=== PATIENT | male | born 1990 | race Caucasian/White ===

== ENCOUNTER 2024-03-11 20:08 | Emergency (ER) | payer OTHER ==
[~2024-03-11] VITALS: Ht 172.7 cm; Wt 76.2 kg
[2024-03-11 20:14] VITALS: BP 114/78; PULSE 118; RESP 18; TEMP 103.2; O2SAT 98
[2024-03-11] MEDS ORDERED: ACETAMINOPHEN 325 MG TAB ONE (20:24)
[2024-03-11] MEDS: ACETAMINOPHEN 325 MG TAB PO ONE (20:25)
[2024-03-11 20:49] LABS: FLU A ANTIGEN negative (NEGATIVE); FLU B ANTIGEN NEGATIVE (NEGATIVE)
[2024-03-11] MEDS: NACL 0.9% 1,000 ML IV ONE (22:57)
[2024-03-11 23:02] LABS: BASOPHILS # (AUTO) 0.1 K/uL (0.00-0.22); BASOPHILS % (AUTO) 0.6 % (0.0-2.0); EOSINOPHILS % (AUTO) 0.3 % (0.0-4.0); HEMATOCRIT 45.9 % (36-52); HEMOGLOBIN 15.7 g/dL (12.0-18.0); LYMPHOCYTES # (AUTO) 2.4 K/uL (2.0-11.5); LYMPHOCYTES % (AUTO) 25.2 % (20.5-51.1); MEAN CORPUSCULAR HEMOGLOBIN 31 pg (27-31); MEAN CORPUSCULAR HGB CONC 34 g/dL (33-37); MEAN CORPUSCULAR VOLUME 89.2 fL (80-94); MONOCYTES # (AUTO) 0.8 K/uL (0.8-1.0); MONOCYTES % (AUTO) 8.4 % (1.7-9.3); NEUTROPHILS # (AUTO) 6.2 K/uL (1.8-7.7); NEUTROPHILS % (AUTO) 65.5 % (42.2-75.2); PLATELET COUNT (AUTO) 225 K/uL (140-450); RED BLOOD CELL COUNT(AUTO) 5.15 MIL/uL (4.20-6.10); RED CELL DISTRIBUTION WIDTH 13.3 % (11.6-13.7); WHITE BLOOD COUNT (AUTO) 9.4 K/uL (4.8-10.8)
[2024-03-11] MEDS ORDERED: KETOROLAC 30 MG/ML VIAL ONE (23:05)
[2024-03-11 23:07] LABS: APPEARANCE,URINE CLEAR (CLEAR); BILIRUBIN,URINE NEGATIVE (NEGATIVE); BLOOD, URINE NEGATIVE (NEGATIVE); COLOR,URINE YELLOW (YELLOW); LEUKOCYTE ESTERASE ,URINE NEGATIVE (NEGATIVE); NITRITE, URINE NEGATIVE (NEGATIVE); PROTEIN,URINE NEGATIVE (NEGATIVE); UGLUCOSE NEGATIVE (NEGATIVE); UROBILINOGEN,URINE 0.2 EU/dL (0.2 - 1)
[2024-03-11] MEDS: KETOROLAC 30 MG/ML VIAL IVP ONE (23:14)
[2024-03-11 23:17] LABS: INR 1.14 (0.8-1.2); PARTIAL THROMBOPLASTIN TIME 28.5 secs (22-35.6); PROTHROMBIN TIME 11.9 secs (10.8-13.4)
[2024-03-11 23:23] LABS: ALANINE AMINOTRANSFERASE 30 U/L (12-78); ALBUMIN 3.7 g/dL (3.4-5.0); ALKALINE PHOSPHATASE 67 U/L (50-136); ASPARTATE AMINOTRANSFERASE 28 U/L (15-37); BILIRUBIN,DIRECT 0.1 mg/dL (0.0-0.3); CREATINE KINASE, TOTAL 83 U/L (39-308); TOTAL BILIRUBIN 0.3 mg/dL (0.0-1.0); TOTAL PROTEIN, SERUM 8.7 g/dL (6.4-8.2)
[2024-03-11 23:25] LABS: ANION GAP 13.9 (8-16); CARBON DIOXIDE 27.2 mmol/L (21-32); CREATININE 1.1 mg/dL (0.6-1.3); POTASSIUM 4.1 mmol/L (3.5-5.1)
[2024-03-11 23:29] LABS: LACTIC ACID 1.9 mmol/L (0.4-2.0)
[2024-03-12] MEDS ORDERED: AMOX1TAB8 PO (02:10)
[2024-03-12] MEDS ORDERED: AZIT250T4 PO (02:10)
[2024-03-12 02:23] VITALS: BP 120/59; PULSE 87; RESP 16; TEMP 100.1; O2SAT 100
== END 2024-03-12 02:21 | disposition home or self-care (01) ==
LOC: MED 20:08
DX: S76.012A Strain of muscle, fascia and tendon of left hip, initial encounter (principal); J18.9 Pneumonia, unspecified organism; Z20.822 Contact with and (suspected) exposure to COVID-19; R00.0 Tachycardia, unspecified; Z79.899 Other long term (current) drug therapy; X50.1XXA Overexertion from prolonged static or awkward postures, initial encounter; Y93.89 Activity, other specified; Y92.89 Other specified places as the place of occurrence of the external cause; Y99.8 Other external cause status
CPT/HCPCS: 36415; 71045; 72193; 80048; 80076; 81003; 82550; 83605; 84484; 85025; 85610; 85730; 86308; 87040; 87081; 87086; 87426; 87804; 93005; 96361; 96374; 99285; J1885; J7030; Q9967